=== PATIENT | female | born 1985 | race Caucasian/White ===

== ENCOUNTER 2018-07-15 05:33 | Inpatient (IN) | payer MEDICAID ==
[~2018-07-15] VITALS: Ht 154.9 cm; Wt 77.3 kg
[2018-07-15] VITALS (16 sets, daily range): BP systolic 97–125; BP diastolic 49–79; PULSE 65–97; TEMP 97.6–98.5
[~2018-07-15 05:33] MED LIST: IBU600 MG PO; PERCOCET 325 MG1 TA2 PO; PRENATAL1 TA1
--- NOTE | 2018-07-15 05:40 | NUR ---
G3L2. 39-3. Ambulatory to [facility] 3 with family. Clean gown on. EFM and TOCO explained and applied. Pt states her water broke at 0430 this AM, small amount of clear fluid noted with larger gush noted afterwards. States a small amount of pink tinged fluid and states her contractions started after water breaking. Reports good movement. SVE 6/90/-1 and ballotable, amniotest + with large amount of clear fluid noted on exam. Plan of care explained to pt. 0541: updated on pts status. See physican notification. 0610: IV started and labs obtained via IV site. LR bolus infusing without difficulties. Consents completed. Call light within reach.
[2018-07-15] MEDS ORDERED: VALTREX 50500 MG/TAB PO (05:56)
--- NOTE | 2018-07-15 06:20 | NUR ---
Patient requesting epidrual. 0629: Toro RN called and notified and on her way. 0640: SVE-8-9/100/-1 and moderate amount of clear fluid and forebag felt. 0645: called and notified and he states he is on his way. LR bolus infusing. 0650: Azael Roy at bedside and patient sat up for epidural placement. FHR difficult to trace at this time due to maternal position. 0655: Single shot given and patient tolerates well. 0700: Patient wedged right and becoming more comfortable at this time. 0705: Blood pressure- 100/54 0708: Blood pressure-86/51 and patient states a little light headed. 0710: Blood pressure-76/42 and 10mg of ephedrine given IV at this time. 0712: Blood pressure recheck-98/65 Dr Wilson at nurses station at this time reviewing FHR strip. 0714: Dr. Wilson at bedside assessing patient. 0716: SVE-10/100 and AROM of forebag at this time with clear fluid noted. Patient set up for vaginal delivery at this time and bed taken apart. 0725: Dr. Wilson straight catherizes patient. 0728: Patient begins to push per orders with each contraction. FHR showing variable decelerations and returns to baseline. Patient continue to push with with each contraction. 0743: Spontaneous vaginal delivery of head followed by body. to patient abdomen and C.Diane RN assumes care of .Cord clamped by Dr Wilson and cut by FOB. 0746: Spontaneous delivery of placenta and pitocin bolus started per protocol. Fundal massage done/bleeding WNL/firm. Dr. Wilson repairs laceration. 0752: Patient repositioned and Ice pack to perineum, plan of care discussed. Fundal massage done/firm/bleeding WNL and will continue to monitor.
[2018-07-15 06:50] LABS: BASO % 0.3 % (0.0-2.0); EOS # 0.1 (0.0-0.7); EOS % 0.8 % (0-4.0); GRAN # 7.8 (1.4-6.5); GRAN % 62.9 % (42.2-75.2); HEMOGLOBIN 11.1 g/dl (12.5-16.0); LYMPH # 3.5 (1.2-3.4); LYMPH % 28.1 % (20.0-51.0); MEAN CELL VOLUME 86 fl (80.0-100.0); MEAN CORPUSCULAR HEMOGLOBIN 29 pg (27.0-31.0); MEAN CORPUSCULAR HGB CONC 33 g/dl (33.0-37.0); MEAN PLATELET VOLUME 11.7 fl (7.4-10.4); MONO # 0.9 (0.1-0.6); MONO % 7.4 % (1.7-9.3); PLATELET COUNT 188 K/mm3 (130-400); RED BLOOD COUNT 3.88 M/mm3 (4.10-5.30); REDCELL DISTRIBUTION WIDTH-CV 13.5 % (11.5-14.5)
[2018-07-15 07:00] LABS: HEMATOCRIT 33.3 % (37.0-47.0)
--- NOTE | 2018-07-15 10:40 | NUR ---
Patient sitting on edge, epidural catheter removed and patient tolerates. Patient ambulates to bathroom with standby assist. Patient voids, pericare done, new gown, underwear, pad on. Paitient to wheelchair and to new room. Patient oriented to room, white board gone over, and plan of care discussed.
[2018-07-16 01:15] VITALS: BP 126/78; PULSE 103; TEMP 98
[2018-07-16] MEDS ORDERED: IBU600 MG PO (07:50)
[2018-07-16] MEDS ORDERED: PERCOCET 325 MG1 TA2 PO (07:50)
[2018-07-16 08:24] LABS: HEMOGLOBIN 9.1 g/dl (12.5-16.0)
[2018-07-16 09:00] VITALS: BP 120/79; PULSE 80; TEMP 97.5
--- NOTE | 2018-07-16 09:03 | NUR ---
Initial visit; Parents thanked Typist for offering congratulations and God's blessings for the of their son. Typist thanked them for choosing [facility].
== END 2018-07-16 16:55 | disposition home or self-care (01) | DRG 806 ==
LOC: LDR 05:33 → OB 05:33
PROVIDERS: ADMIT Obstetrics & Gynecology
PROC: 10E0XZZ Delivery of Products of Conception, External Approach (ICD-10-PCS; principal; 2018-07-15)
PROC: 0KQM0ZZ Repair Perineum Muscle, Open Approach (ICD-10-PCS; 2018-07-15)
DX: O40.3XX0 Polyhydramnios, third trimester, not applicable or unspecified (principal); O98.32 Other infections with a predominantly sexual mode of transmission complicating childbirth; Z37.0 Single live birth; Z3A.39 39 weeks gestation of pregnancy; O70.1 Second degree perineal laceration during delivery; O69.81X0 Labor and delivery complicated by cord around neck, without compression, not applicable or unspecified; O99.334 Smoking (tobacco) complicating childbirth; O26.893 Other specified pregnancy related conditions, third trimester; Z67.41 Type O blood, Rh negative
CPT/HCPCS: J2590; J2795; J7120